=== PATIENT | male | born 1995 | race Caucasian/White ===

== ENCOUNTER 2017-08-05 08:11 | Emergency (ER) | payer OTHER ==
[~2017-08-05] VITALS: Ht 182.9 cm; Wt 100.0 kg
[~2017-08-05 08:11] MED LIST: ALBU8.5H5 INH; GUAI120S26 PO
[2017-08-05 08:13] VITALS: Ht 182.9 cm; Wt 100.0 kg
[2017-08-05] MEDS ORDERED: IPRATROPIUM (NEB) 0.5 MG/2.5 ML AMP NEB STA (08:26)
[2017-08-05] MEDS ORDERED: predniSONE 20 MG TAB PO STA (08:26)
[2017-08-05] MEDS ORDERED: ALBUTEROL 0.083% (NEB) 2.5 MG/3 ML AMP NEB STA (08:26)
[2017-08-05] MEDS ORDERED: ALBU8.5H3 INH (08:50)
[2017-08-05] MEDS ORDERED: PRED20TA PO (08:50)
--- NOTE | 2017-08-05 09:02 | ERD ---
ER Documentation Chief Complaint Chief Complaint flu like symptoms with cough HPI Patient is a 22-year-old male has a history of asthma complaining of cough and congestion for the past 3 days. His symptoms are worse at night and sometimes it makes it difficult for him to breathe. No nausea or vomiting. No hemoptysis or unplanned weight loss. ROS All systems reviewed and are negative except as per history of present illness. Medications Home Meds Active Scripts Albuterol Sulfate* (Proair HFA*) 8.5 Gm Hfa.aer.ad, 2 PUFF INH Q4, #1 INHALER Prov:CHRISTOPHER RICHARDS PA-C 08/05/17 Prednisone* (Prednisone*) 20 Mg Tab, 40 MG PO DAILY for 4 Days, TAB Prov:CHRISTOPHER RICHARDS PA-C 08/05/17 Jxlqcydxuxn-D-Xnrraelltf Hb* (Guaifenesin* DM Syrup) 120 Ml Syrup, 10 ML PO Q4H Y for COUGH, #1 ML Prov:ROBERT CONNELL NP 06/28/15 Albuterol Sulfate* (Albuterol Sulfate* HFA) 8.5 Gm Hfa.aer.ad, 2 PUFF INH Q4 Y for SHORTNESS OF BREATH, #1 EA Prov:ROBERT CONNELL NP 06/28/15 Reported Medications [None] No Conflict Check 12/09/09 Allergies Allergies: Coded Allergies: Shellfish (Verified Allergy, Unknown, 06/28/15) PMhx/Soc Medical and Surgical Hx: pt denies Surgical Hx History of Surgery: No Anesthesia Reaction: No Hx Neurological Disorder: No Hx Respiratory Disorders: No Hx Cardiac Disorders: No Hx Psychiatric Problems: No Hx Miscellaneous Medical Probl: No Hx Alcohol Use: No Hx Substance Use: No Hx Tobacco Use: No Smoking Status: Never smoker FmHx Family History: No diabetes Physical Exam Vitals Vital Signs Date Time Temp Pulse Resp B/P Pulse Ox O2 Delivery O2 Flow Rate FiO2 08/05/17 08:45 78 18 99 21 08/05/17 08:13 97.5 78 18 150/76 99 Physical Exam INITIAL VITAL SIGNS: Reviewed by me GENERAL: Awake, alert and oriented x 4, well appearing, nontoxic, speaking in full sentences. No acute distress HEAD: Atraumatic NECK: Supple. No masses. Full range of motion. No meningismus. No midline tenderness. EYES: EOMI. PERRL. THROAT: No tonilar erythema or edema. No exudates. Uvula midline. No kissing tonsils. RESPIRATORY: Bilateral inspiratory wheezing, no use of accessory muscles ABDOMEN: Soft, non-distended. Nontender. Negative Wallace. Negative McBurneys point tenderness. No CVA tenderness bilaterally. No guarding. No rebound. Results 24 hrs Current Medications Medications (Trade) Dose Ordered Sig/Deb Route PRN Reason Start Time Stop Time Status Last Admin Dose Admin Albuterol (Proventil 0.083% (Neb)) 2.5 mg ONCE STAT NEB 08/05/17 08:26 08/05/17 08:28 DC 08/05/17 08:44 Ipratropium [place] (Atrovent 0.02% (Neb)) 0.5 mg ONCE STAT NEB 08/05/17 08:26 08/05/17 08:28 DC 08/05/17 08:44 Prednisone (Prednisone) 60 mg ONCE STAT PO 08/05/17 08:26 08/05/17 08:28 DC 08/05/17 08:33 Procedures/MDM 22-year-old presents with asthma exacerbation. He was given prednisone and a breathing treatment with improvement of his symptoms and he is discharged with short course of prednisone as well as albuterol. Patient counseled regarding my diagnostic impression and care plan. Prior to discharge all questions answered. Pt agrees with treatment plan and understands strict return precautions. Pt is instructed to follow up with primary care provider within 24- 48 hours. Precautionary instructions provided including instructions to return to the ER if not improving or for any worsening or changing symptoms or concerns. Departure Diagnosis: Primary Impression: Wheezy bronchitis Condition: Stable Patient Instructions: Bronchitis With Wheezing (Adult) Additional Instructions: Call your primary care doctor TOMORROW for an appointment during the next 1-2 days.See the doctor sooner or return here if your condition worsens before your appointment time. CHRISTOPHER RICHARDS PA-C Aug 05, 2017 09:02
[2017-08-05 09:25] VITALS: BP 144/88; PULSE 84; RESP 18; TEMP 98.6
== END 2017-08-05 09:25 | disposition home or self-care (01) ==
LOC: FTE 08:11
DX: J20.9 Acute bronchitis, unspecified (principal); J45.909 Unspecified asthma, uncomplicated
CPT/HCPCS: 94664; J7512; Z7502; Z7610

== ENCOUNTER 2018-07-16 12:25 | Emergency (ER) | END 2018-07-16 14:45 | disposition home or self-care (01) ==